=== PATIENT | female | born 1985 | race Caucasian/White ===

== ENCOUNTER 2016-08-06 21:16 | Emergency (ER) | payer OTHER ==
--- NOTE | 2016-08-06 21:44 | DIAGNOSTIC IMAGING REPORT ---
PROCEDURE: XR CHEST 1 VIEW INDICATION: CHEST PAIN TECHNIQUE: Single view chest. 2139 hours COMPARISON: None. FINDINGS: The cardiomediastinal contour and central vasculature are normal. The lungs are clear without focal consolidation, pleural effusion or pneumothorax. The osseous structures are intact. IMPRESSION: 1. No evidence of acute cardiopulmonary disease.
--- NOTE | 2016-08-06 23:19 | DIAGNOSTIC IMAGING REPORT ---
PROCEDURE: CTA THORAX WITH CONTRAST INDICATION: CP, DYSPNEA, H/O DVT TECHNIQUE: 80 ml of Isovue 370 was injected intravenously and axial images were obtained of the chest with 3D sagittal and coronal MIP reconstructions. COMPARISON: None. FINDINGS: Normal opacification of the pulmonary arterial tree without filling defect. The central pulmonary arteries are normal caliber. Thoracic aorta is normal caliber. The great vessels demonstrate a normal variant, retroesophageal right subclavian artery. Normal carotid arteries. Heart size is normal. No pericardial effusion. No adenopathy or mediastinal masses. The esophagus is normal in caliber without hiatal hernia. The thyroid gland is normal. The lungs are clear. The airway is patent and branches normally. No pleural effusions or pneumothorax. Osseous structures are intact. The images obtained of the upper abdomen are normal. IMPRESSION: 1. No pulmonary embolus. 2. No pulmonary parenchymal disease. 3. Findings called to the emergency room.
--- NOTE | 2016-08-06 23:24 | ED ORDER SUMMARY ---
..... Patient: CHRISTIANO GAYTAN OrderSheet [facility] VisitID: [id number] [place] [address] 31y, F Registration Date/Time: 08/06/2016 ORDER SHEET Weight: 63.9 kg (stated) Allergies: Amoxicillin, Keflex, Propofol GENERAL ORDERS: Chest 1V Urgent (21:26 08/06/2016 Mary ARMENTA) (Ack 21:28 [employer] ER [employer]igs) (21:39 NHouse ER Tech1) Certified Respiratory Therapist (Continuous) (21:27 08/06/2016 Mary ARMENTA) (21:34 JQuivey R.N.) CBC w Diff Urgent (21:27 08/06/2016 Mary ARMENTA) (Ack 21:28 [employer] ER [employer]) (21:32 JQuivey R.N.) CMP Urgent (21:27 08/06/2016 Mary ARMENTA) (Ack 21:28 [employer] ER [employer]) (21:32 JQuivey R.N.) PT with INR Urgent (21:27 08/06/2016 Mary ARMENTA) (Ack 21:28 [employer] ER [employer]) (21:32 JQuivey R.N.) EKG - ER Stat (21:27 08/06/2016 Mary ARMENTA) (21:32 JQuivey R.N.) (21:33 NHouse ER Tech1) Pulse oximeter (21:27 08/06/2016 Mary ARMENTA) (21:32 JQuivey R.N.) CTA Thorax w Cont (No) (normal) Urgent (22:14 08/06/2016 Mary ARMENTA) (Ack 22:15 [employer]Henry ER [employer]igs) (22:49 RFay) MEDICATION ORDERS: IV FLUIDS: Toradol IV 30 mg (NOW) (22:15 08/06/2016 Mary ARMENTA) (Ack 22:18 JQuivey R.N.) (22:23 JQuivey R.N.) Zofran IV 8 mg (NOW) (22:15 08/06/2016 Mary ARMENTA) (Ack 22:18 JQuivey R.N.) (22:23 JQuivey R.N.) ORDER SHEET NOTES: [Electronically signed by Emma Juarez MD (23:35 08/06/2016)] [Electronically signed by Alfred Aguilera R.N. (23:39 08/06/2016)] [Electronically locked/signed by Alfred Aguilera R.N. (23:39 08/06/2016)]
--- NOTE | 2016-08-06 23:24 | ED ORDER SUMMARY ---
..... Patient: CHRISTIANO GAYTAN OrderSheet [facility] VisitID: [id number] [place] [address] 31y, F Registration Date/Time: 08/06/2016 ORDER SHEET Weight: 63.9 kg (stated) Allergies: Amoxicillin, Keflex, Propofol GENERAL ORDERS: Chest 1V Urgent (21:26 08/06/2016 Mary ARMENTA) (Ack 21:28 [employer] ER Supervisor [employer] Production) (21:39 NHouse ER Tech1) Fixture Designer (Continuous) (21:27 08/06/2016 Mary ARMENTA) (21:34 JQuivey R.N.) CBC w Diff Urgent (21:27 08/06/2016 Mary ARMENTA) (Ack 21:28 [employer] ER Supervisor [employer]) (21:32 JQuivey R.N.) CMP Urgent (21:27 08/06/2016 Mary ARMENTA) (Ack 21:28 [employer] ER Supervisor [employer]) (21:32 JQuivey R.N.) PT with INR Urgent (21:27 08/06/2016 Mary ARMENTA) (Ack 21:28 [employer] ER Supervisor [employer]) (21:32 JQuivey R.N.) EKG - ER Stat (21:27 08/06/2016 Mary ARMENTA) (21:32 JQuivey R.N.) (21:33 NHouse ER Tech1) Pulse oximeter (21:27 08/06/2016 Mary ARMENTA) (21:32 JQuivey R.N.) CTA Thorax w Cont (No) (normal) Urgent (22:14 08/06/2016 Mary ARMENTA) (Ack 22:15 [employer] ER Supervisor [employer]) (22:49 RFay) MEDICATION ORDERS: IV FLUIDS: Toradol IV 30 mg (NOW) (22:15 08/06/2016 Mary ARMENTA) (Ack 22:18 JQuivey R.N.) (22:23 JQuivey R.N.) Zofran IV 8 mg (NOW) (22:15 08/06/2016 Mary ARMENTA) (Ack 22:18 JQuivey R.N.) (22:23 JQuivey R.N.) ORDER SHEET NOTES: [Electronically signed by Emma Juarez MD (23:35 08/06/2016)] [Electronically signed by Alfred Aguilera R.N. (23:39 08/06/2016)] [Electronically locked/signed by Alfred Aguilera R.N. (23:39 08/06/2016)]
--- NOTE | 2016-08-06 23:24 | ED NURSING NOTES ---
Clinical Report - Nurses [facility] [address] [place] [address] 08/06/2016 21:17 Patient: CHRISTIANO GAYTAN TRIAGE Triage time 21:23. Acuity: LEVEL 3. Chief Complaint: SHORTNESS OF BREATH and DIFFICULTY BREATHING and CHEST PAIN and BACK PAIN. 21:31. Alert. --21:32 Alfred Aguilera R.N. 21:23 08/06/16. BP: 109/67. HR: 93. RR: 17. O2 saturation: 99% on room air. Temp: 97.5 F (oral). Pain level now: 11/11. --21:32 Alfred Aguilera R.N. Weight: 63.9 kg stated. Height/Length: 63 inches Per Patient. BMI: 25. --21:31 Alfred Aguilera R.N. Medications Mesalamine ER Oral 1.2 gm , 4 x daily. --21:25 Alfred Aguilera R.N. Remicade Intravenous, 1 weekly . --21:27 Alfred Aguilera R.N. Medication/allergy information source: the patient. --21:32 Alfred Aguilera R.N. Allergies Amoxicillin. --21:27 Alfred Aguilera R.N. Keflex. --21:27 Alfred Aguilera R.N. Propofol. --21:27 Alfred Aguilera R.N. History Arrived by private vehicle. Historian: patient. Accompanied by family. Primary physician (None). This started today. ( Patient was sent here from the [facility] - pt has a Hx of DVT and they were worried about a PE). She has had a cough. ( vomited once today). Treatment LIBRARY MEDIA ASSISTANT: None. PAST MEDICAL HX: Immunizations: up-to-date. Last normal menstrual period- Started Sunday. SOCIAL HX: Never smoker. No alcohol use or drug use. No infectious disease exposure. ABUSE ASSESSMENT: No report of abuse. FALL RISK ASSESSMENT: Fall risk assessment completed. No fall risk identified. NUTRITIONAL RISK ASSESSMENT: The nutritional risk assessment revealed no deficiencies. FUNCTIONAL ASSESSMENT: Functional assessment: no impairments noted. LEARNING NEEDS ASSESSMENT: The learning needs assessment revealed no barriers. SKIN INTEGRITY ASSESSMENT: Skin integrity risk assessment completed. No skin integrity risk identified. --21:32 Alfred Aguilera R.N. PROBLEMS: Colitis. --21:28 Alfred Aguilera R.N. ADDITIONAL SURGERIES: no known surgeries. Interventions ID band on patient. To treatment room. --21:32 Alfred Aguilera R.N. PHYSICAL ASSESSMENT 21:30. Ambulatory to room. Patient gowned. GENERAL / NEURO / PSYCH: Alert. Oriented X 4. HEENT: Mucous membranes are pink. RESPIRATORY: No respiratory distress. Respirations not labored. The patient can speak in full sentences. SKIN: Skin is warm and dry. Normal skin turgor. --21:30 Alfred Aguilera R.N. NURSING PROGRESS NOTES 21:29. Head of bed elevated. Two patient identifiers checked. Call light placed in reach. Bed placed in lowest position. Brakes of bed on. --21:29 Alfred Aguilera R.N. 21:29. EKG time: (2131). EKG was performed by a tech and shown to the ED physician. --21:29 Alfred Aguilera R.N. 21:27 08/06/2016 Site #1 started via IV in the right antecubital space with an 20g angiocath; one attempt. Blood drawn: rainbow set. Labeled in the presence of the patient and sent to the lab. Saline lock flushed with 10 mL saline (by Panchito CAVAZOS). --21:30 Alfred Aguilera R.N. 21:34. monitoring manager, pulse oximeter and NIBP monitor placed on patient; monitor alarms on. --21:34 Alfred Aguilera R.N. 21:41. Portable chest x-ray performed. --22:03 Alfred Aguilera R.N. 22:18 08/06/2016 Zofran (Ondansetron HCl) IVP 8 mg given over 2 minute(s) via site #1. Allergies verified and confirmed 5 rights. IV patency established. IV site checked: no pain, redness, or swelling. IV flushed thoroughly pre- and post-medication administration. --22:23 Alfred Aguilera R.N. 22:21 08/06/2016 Toradol IVP 30 mg given over 2 minute(s) via site #1. Allergies verified and confirmed 5 rights. IV patency established. IV site checked: no pain, redness, or swelling. IV flushed thoroughly pre- and post-medication administration. --22:23 Alfred Aguilera R.N. 22:36. Patient transported to CT by stretcher with tech. --22:46 Alfred Aguilera R.N. 22:50. Patient returned from CT by stretcher with tech. --22:51 Alfred Aguilera R.N. 23:35. The patient is calm and resting quietly. RESPIRATORY: No respiratory distress. SKIN: Skin is warm and dry. Skin color within normal limits. --23:38 Alfred Aguilera R.N. DISPOSITION / DISCHARGE Departure time: 23:37. Condition at departure: critical. No learning barriers present. Discharge instructions provided and reviewed with the patient. Reviewed medication(s) side effects, precautions, dosing and course information. Prescription(s) given to the patient. Patient verbalized understanding. Written instructions provided in [place]er. The patient was discharged home and accompanied by family. She left the Emergency Department ambulatory and via private vehicle. Patient driving. FALL RISK ASSESSMENT: Fall risk assessment completed. No fall risk identified. --23:38 Alfred Aguilera R.N. 23:31 08/06/16. BP: 98/61. HR: 83. RR: 16. O2 saturation: 99%. Pain level now: 07/14. --23:38 Alfred Aguilera R.N. 23:33 08/06/2016 Site #1 removed upon discharge. Catheter intact. Bandage applied. --23:38 Alfred Aguilera R.N. Locked/Released at 08/06/2016 23:39 by Alfred Aguilera R.N.
--- NOTE | 2016-08-06 23:24 | ED NURSING NOTES ---
Clinical Report - Nurses [facility] [address] [place] [address] 08/06/2016 21:17 Patient: CHRISTIANO GAYTAN TRIAGE Triage time 21:23. Acuity: LEVEL 3. Chief Complaint: SHORTNESS OF BREATH and DIFFICULTY BREATHING and CHEST PAIN and BACK PAIN. 21:31. Alert. --21:32 Alfred Aguilera R.N. 21:23 08/06/16. BP: 109/67. HR: 93. RR: 17. O2 saturation: 99% on room air. Temp: 97.5 F (oral). Pain level now: 11/11. --21:32 Alfred Aguilera R.N. Weight: 63.9 kg stated. Height/Length: 63 inches Per Patient. BMI: 25. --21:31 Alfred Aguilera R.N. Medications Mesalamine ER Oral 1.2 gm , 4 x daily. --21:25 Alfred Aguilera R.N. Remicade Intravenous, 1 weekly . --21:27 Alfred Aguilera R.N. Medication/allergy information source: the patient. --21:32 Alfred Aguilera R.N. Allergies Amoxicillin. --21:27 Alfred Aguilera R.N. Keflex. --21:27 Alfred Aguilera R.N. Propofol. --21:27 Alfred Aguilera R.N. History Arrived by private vehicle. Historian: patient. Accompanied by family. Primary physician (None). This started today. ( Patient was sent here from the [facility] - pt has a Hx of DVT and they were worried about a PE). She has had a cough. ( vomited once today). Treatment WAITSTAFF: None. PAST MEDICAL HX: Immunizations: up-to-date. Last normal menstrual period- Started Sunday. SOCIAL HX: Never smoker. No alcohol use or drug use. No infectious disease exposure. ABUSE ASSESSMENT: No report of abuse. FALL RISK ASSESSMENT: Fall risk assessment completed. No fall risk identified. NUTRITIONAL RISK ASSESSMENT: The nutritional risk assessment revealed no deficiencies. FUNCTIONAL ASSESSMENT: Functional assessment: no impairments noted. LEARNING NEEDS ASSESSMENT: The learning needs assessment revealed no barriers. SKIN INTEGRITY ASSESSMENT: Skin integrity risk assessment completed. No skin integrity risk identified. --21:32 Alfred Aguilera R.N. PROBLEMS: Colitis. --21:28 Alfred Aguilera R.N. ADDITIONAL SURGERIES: no known surgeries. Interventions ID band on patient. To treatment room. --21:32 Alfred Aguilera R.N. PHYSICAL ASSESSMENT 21:30. Ambulatory to room. Patient gowned. GENERAL / NEURO / PSYCH: Alert. Oriented X 4. HEENT: Mucous membranes are pink. RESPIRATORY: No respiratory distress. Respirations not labored. The patient can speak in full sentences. SKIN: Skin is warm and dry. Normal skin turgor. --21:30 Alfred Aguilera R.N. NURSING PROGRESS NOTES 21:29. Head of bed elevated. Two patient identifiers checked. Call light placed in reach. Bed placed in lowest position. Brakes of bed on. --21:29 Alfred Aguilera R.N. 21:29. EKG time: (2131). EKG was performed by a tech and shown to the ED physician. --21:29 Alfred Aguilera R.N. 21:27 08/06/2016 Site #1 started via IV in the right antecubital space with an 20g angiocath; one attempt. Blood drawn: rainbow set. Labeled in the presence of the patient and sent to the lab. Saline lock flushed with 10 mL saline (by Panchito CAVAZOS). --21:30 Alfred Aguilera R.N. 21:34. child monitor, pulse oximeter and NIBP monitor placed on patient; monitor alarms on. --21:34 Alfred Aguilera R.N. 21:41. Portable chest x-ray performed. --22:03 Alfred Aguilera R.N. 22:18 08/06/2016 Zofran (Ondansetron HCl) IVP 8 mg given over 2 minute(s) via site #1. Allergies verified and confirmed 5 rights. IV patency established. IV site checked: no pain, redness, or swelling. IV flushed thoroughly pre- and post-medication administration. --22:23 Alfred Aguilera R.N. 22:21 08/06/2016 Toradol IVP 30 mg given over 2 minute(s) via site #1. Allergies verified and confirmed 5 rights. IV patency established. IV site checked: no pain, redness, or swelling. IV flushed thoroughly pre- and post-medication administration. --22:23 Alfred Aguilera R.N. 22:36. Patient transported to CT by stretcher with tech. --22:46 Alfred Aguilera R.N. 22:50. Patient returned from CT by stretcher with tech. --22:51 Alfred Aguilera R.N. 23:35. The patient is calm and resting quietly. RESPIRATORY: No respiratory distress. SKIN: Skin is warm and dry. Skin color within normal limits. --23:38 Alfred Aguilera R.N. DISPOSITION / DISCHARGE Departure time: 23:37. Condition at departure: critical. No learning barriers present. Discharge instructions provided and reviewed with the patient. Reviewed medication(s) side effects, precautions, dosing and course information. Prescription(s) given to the patient. Patient verbalized understanding. Written instructions provided in [place]er. The patient was discharged home and accompanied by family. She left the Emergency Department ambulatory and via private vehicle. Patient driving. FALL RISK ASSESSMENT: Fall risk assessment completed. No fall risk identified. --23:38 Alfred Aguilera R.N. 23:31 08/06/16. BP: 98/61. HR: 83. RR: 16. O2 saturation: 99%. Pain level now: 07/14. --23:38 Alfred Aguilera R.N. 23:33 08/06/2016 Site #1 removed upon discharge. Catheter intact. Bandage applied. --23:38 Alfred Aguilera R.N. Locked/Released at 08/06/2016 23:39 by Alfred Aguilera R.N.
--- NOTE | 2016-08-06 23:24 | ED CLINICAL REPORT ---
Clinical Report - Physicians/Mid Levels [facility] [address] [place] [address] 08/06/2016 21:17 Patient: CHRISTIANO GAYTAN Time Seen: 2122. Arrived- By private vehicle. Historian- patient. HISTORY OF PRESENT ILLNESS Chief Complaint: CHEST PAIN. At its maximum, severity described as moderate. When seen in the E.D., severity described as mild. Modifying factors. Not worsened by anything. Not relieved by anything. This started several days ago and is still present. It has been intermittent. The patient cannot recall the circumstances at the onset. It is described as sharp and "pain" and it is described as located in the right chest, central chest and left chest area. The patient has had mild difficulty breathing and nausea. She has had vomiting (this morning). The vomiting has occurred twice. No diaphoresis. Similar symptoms previously: None. Recent medical care: The patient was seen recently at another facility in a clinic. ( Pt had a d-dimer done, and this was apparently elevated, so pt was told to come here.). REVIEW OF SYSTEMS No fever, chills, cough, pedal edema or calf pain. No fainting episodes, headache, sore throat, blurred vision or abdominal pain. No black stools, difficulty with urination, skin rash, enlarged lymph nodes or joint pain. No bloody stools. All systems otherwise negative, except as recorded above. PAST HISTORY Problems: Colitis. Additional Surgeries: no known surgeries. Medications: Remicade Intravenous, 1 weekly . Mesalamine ER Oral 1.2 gm , 4 x daily. Allergies: Amoxicillin. Keflex. Propofol. SOCIAL HISTORY Never smoker. No alcohol use or drug use. ADDITIONAL NOTES The nursing notes have been reviewed. PHYSICAL EXAM Vital Signs: 08/06/2016 21:23 BP: 109/67. HR: 93. RR: 17. O2 saturation: 99%. Temp: 97.5 F. Pain level now: 6/10. Have been reviewed. Appearance: Alert. Oriented X3. No acute distress. Eyes: Pupils equal, round and reactive to light. Eyes normal inspection. ENT: Nose normal. Neck: Normal inspection. Neck supple. CVS: Normal heart rate and rhythm. Heart sounds normal. Pulses normal. Respiratory: No respiratory distress. Breath sounds normal. Abdomen: Soft and nontender. Back: Normal external inspection. No CVA tenderness. Skin: Skin warm and dry. Normal skin color. No rash. Normal skin turgor. Extremities: Extremities exhibit normal ROM. No lower extremity edema. Neuro: Oriented X 3. No motor deficit. No sensory deficit. LABS, X-RAYS, AND EKG EKG: EKG time: (2131). No acute process. No acute ischemia. Normal EKG. Normal sinus rhythm. Rate: 91. Normal P waves. Normal SONG. Normal QRS complex. Normal axis. Normal ST and T waves, QT and QTc. Prior EKG unavailable. The study has been interpreted contemporaneously by me. The study has been independently viewed by me. The EKG appears to be a good tracing. I agree with and confirm the computer reading of the EKG. Rhythm Strip #1: Time: (2135). Rate= 89. Normal sinus rhythm. Regular rhythm. Narrow QRS complexes. No ectopy. Conduction normal. Normal ST segments and T waves. The study was interpreted by me. Chest X-ray: No acute disease. Normal lung markings present. Normal heart size. Mediastinum normal. Great vessels normal. Soft tissues normal. No infiltrate. No fracture. No bony lesion present. Views: AP (portable). Technique: good. The X-rays were independently viewed by me, interpreted by the radiologist and contemporaneously by me and discussed with the radiologist. Prior films were not available for comparison. Chest CT: Lungs normal. Great vessels normal. Mediastinum normal. No fractures noted. Chest CT performed with contrast. The study was independently viewed by me, interpreted by the radiologist and contemporaneously by me and discussed with the radiologist. Prior studies were not available for comparison. Laboratory Tests: CBC w Diff: (MARRY: 08/06/2016 21:30) ( MsgRcvd 08/06/2016 21:44) Final results Test Result Flag Units (Reference) WHITE BLOOD COUNT 9.1 K/uL (4.5-11.5) RED BLOOD COUNT 4.62 M/uL (4.00-5.20) HEMOGLOBIN 13.3 gm/dL (12.0-16.0) HEMATOCRIT 39.7 % (36.0-46.0) MEAN CELL VOLUME 86 fL (80-100) MEAN CORPUSCULAR HGB 29 pg (26-34) MEAN CORPUSCULAR HGB CONC 33 g/dL (31-37) RED CELL DISTRIBUTION WIDTH 13.4 % (11.6-14.8) PLATELET COUNT 266 K/uL (150-400) NEUTROPHIL % 66.6 % (50-75) LYMPH % 21.5 L % (25-40) MONO % 7.4 % (3-14) EOSINOPHIL % 4.1 H % (0-4) BASOPHIL % 0.4 % (0-2) PT with INR: (MARRY: 08/06/2016 21:30) ( [facility] 08/06/2016 21:50) Final results Test Result Flag Units (Reference) INR 0.9 (0.8-1.2) Low Intensity Therapy: INR 1.5-2.0 PT range 18.5-23.1Mod.Intensity Therapy: INR 2.0-3.0 PT range 23.1-31.5High Intensity Therapy: INR 2.5-3.5 PT range 27.4-35.5High Intensity Therapy 2: INR 3.0-4.0 PT range 31.5-39.3 CMP: (MARRY: 08/06/2016 21:30) ( [facility] 08/06[facility] 21[facility]56) Final results Test Result Flag Units (Reference) GLUCOSE 77 mg/dL (70-110) BUN 10 mg/dL (7-18) CREATININE 0.7 mg/dL (0.6-1.3) Estimated GFR >60 mL/min Estimated GFR- >60 mL/min Note: Persistent reduction over 3 months in eGFR<60 mL/min/1.73 m2 defines CKD. Patients with eGFR values>=60 mL/min/1.73 m2 may also have CKD if evidence ofpersistent proteinuria. Additional information may be foundat www.kidney.org. SODIUM 141 mmol/L (136-145) POTASSIUM 3.2 L mmol/L (3.5-5.1) CHLORIDE 104 mmol/L (98-107) CARBON DIOXIDE 29 mmol/L (21-32) CALCIUM 8.5 mg/dL (8.5-10.1) TOTAL PROTEIN 7.9 g/dL (6.4-8.2) ALBUMIN 3.9 g/dL (3.3-5.0) BILIRUBIN, TOTAL 0.5 mg/dL (0.0-1.0) ALKALINE PHOSPHATASE 75 U/L (46-116) AST (SGOT) 16 U/L (15-37) ALT (SGPT) 26 U/L (12-78) . Pulse Oximetry: 08/06/2016 21:23 O2 saturation: 99%. (FIO2 - room air). Interpretation: normal. PROGRESS AND PROCEDURES Course of Care: Given pt's risk factors, she was worked up for a potential PE. Pt was treated symptomatically with Zofran and Toradol, and work-up was negative. No emergent condition was identified. Patient counseled in person regarding the patient's stable condition, test results, diagnosis and need for follow-up. Concerns were addressed. Old medical records reviewed. Disposition: Discharged. Condition: stable and improved. CLINICAL IMPRESSION Chest pain .12 lead EKG performed. Acute viral syndrome INSTRUCTIONS (Your labs look good, and your CT shows no sign of a blood clot or any other emergent cause of your symptoms. You have no symptoms to indicate any clot in your legs.). Warnings: GENERAL WARNINGS: Return or contact your physician immediately if your condition worsens or changes unexpectedly, if not improving as expected, or if other problems arise. Your Current Medications: CONTINUE TAKING THE FOLLOWING MEDICATIONS: Mesalamine ER Oral : 1.2 gm 4 x daily. Remicade Intravenous : 1 weekly. Prescription Medications: Zofran (orally disintegrating tablets) 4 mg: take 1-2 orally every 6 hours as needed for nausea. Dispense fifteen (15). No refill. Substitution is permissible. Follow-up: Follow up with your doctor in five days if not better. Understanding of the discharge instructions verbalized by patient. (Electronically signed by Emma Juarez MD 08/06/2016 23:35)
--- NOTE | 2016-08-06 23:40 | ED MAR SUMMARY ---
..... Medication Administration Record [facility] [address] [place] [address] Patient: CHRISTIANO GAYATN Visit ID: [id number] 31y, F Weight: 63.9 kg Height/Length: 63 in BMI: 25 ALLERGIES: Propofol, Keflex, Amoxicillin Given 22:18 08/06/2016 Alfred Aguilera, R.N. Medication Administered: ZOFRAN [IVP] (ONDANSETRON HCL), Dose: 8 mg IVP over 2 minute(s), Site: #1 right AC. Medication Ordered: Zofran IV 8 mg (NOW). Given 22:21 08/06/2016 Alfred Aguilera, R.N. Medication Administered: TORADOL [IVP], Dose: 30 mg IVP over 2 minute(s), Site: #1 right AC. Medication Ordered: Toradol IV 30 mg (NOW).
--- NOTE | 2016-08-06 23:40 | ED MAR SUMMARY ---
..... Medication Administration Record [facility] [address] [place] [address] Patient: CHRISTIANO GAYTAN Visit ID: [id number] 31y, F Weight: 63.9 kg Height/Length: 63 in BMI: 25 ALLERGIES: Propofol, Keflex, Amoxicillin Given 22:18 08/06/2016 Alfred Aguilera, R.N. Medication Administered: ZOFRAN [IVP] (ONDANSETRON HCL), Dose: 8 mg IVP over 2 minute(s), Site: #1 right AC. Medication Ordered: Zofran IV 8 mg (NOW). Given 22:21 08/06/2016 Alfred Aguilera, R.N. Medication Administered: TORADOL [IVP], Dose: 30 mg IVP over 2 minute(s), Site: #1 right AC. Medication Ordered: Toradol IV 30 mg (NOW).
--- NOTE | 2016-08-06 23:40 | ED MED RECONCILIATION SUMMARY ---
Patient: CHRISTIANO GAYTAN Medication Reconciliation Report [facility] VisitID: [id number] [address] [place] [address] 31y, F Registration Date/Time: 08/06/2016 Weight: 63.9 kg Height/Length: 63 in. BMI: 25.0 ALLERGIES: Amoxicillin, Keflex, Propofol The patient's Home Medications are listed below: CONTINUE TAKING THE FOLLOWING MEDICATIONS: Mesalamine ER Oral 1.2 gm , 4 x daily Remicade Intravenous, 1 weekly The source(s) of the original Home Medication information: patient The following Medications were given to the patient in the Emergency Department: Zofran [IVP] IVP 8 mg, administered: 08/06/2016 10:18:00 PM Toradol [IVP] IVP 30 mg, administered: 08/06/2016 10:21:00 PM The following Medications were prescribed to the patient: Zofran (orally disintegrating tablets) 4 mg: take 1-2 orally every 6 hours as needed for nausea. Dispense fifteen (15). No refill. Substitution is permissible. -- Emma Juarez MD
--- NOTE | 2016-08-06 23:40 | ED MED RECONCILIATION SUMMARY ---
Patient: CHRISTIANO GAYTAN Medication Reconciliation Report [facility] VisitID: [id number] [address] [place] [address] 31y, F Registration Date/Time: 08/06/2016 Weight: 63.9 kg Height/Length: 63 in. BMI: 25.0 ALLERGIES: Amoxicillin, Keflex, Propofol The patient's Home Medications are listed below: CONTINUE TAKING THE FOLLOWING MEDICATIONS: Mesalamine ER Oral 1.2 gm , 4 x daily Remicade Intravenous, 1 weekly The source(s) of the original Home Medication information: patient The following Medications were given to the patient in the Emergency Department: Zofran [IVP] IVP 8 mg, administered: 08/06/2016 10:18:00 PM Toradol [IVP] IVP 30 mg, administered: 08/06/2016 10:21:00 PM The following Medications were prescribed to the patient: Zofran (orally disintegrating tablets) 4 mg: take 1-2 orally every 6 hours as needed for nausea. Dispense fifteen (15). No refill. Substitution is permissible. -- Emma Juarez MD
--- NOTE | 2016-08-06 23:40 | ED DISCHARGE INSTRUCTIONS ---
Patient: CHRISTIANO GAYTAN General Instructions [facility] VisitID: [id number] [place] [address] 31y, F Registration Date/Time: 08/06/2016 Chest pain .12 lead EKG performed. Acute viral syndrome INSTRUCTIONS (Your labs look good, and your CT shows no sign of a blood clot or any other emergent cause of your symptoms. You have no symptoms to indicate any clot in your legs.). Warnings: GENERAL WARNINGS: Return or contact your physician immediately if your condition worsens or changes unexpectedly, if not improving as expected, or if other problems arise. Your Current Medications: CONTINUE TAKING THE FOLLOWING MEDICATIONS: Mesalamine ER Oral : 1.2 gm 4 x daily. Remicade Intravenous : 1 weekly. Prescription Medications: Zofran (orally disintegrating tablets) 4 mg: take 1-2 orally every 6 hours as needed for nausea. Dispense fifteen (15). No refill. Substitution is permissible. Follow-up: Follow up with your doctor in five days if not better. Understanding of the discharge instructions verbalized by patient. ADDITIONAL INFORMATION Chest Wall Pain: Costochondritis The chest pain that you have had today is caused by Costochondritis. This condition is due to an inflammation of the cartilage joining the ribs to the breastbone. It is not caused by heart or lung problems. Although the exact cause for costochondritis is not known, it often occurs during times of emotional stress. It can be painful, but it is not dangerous. It usually disappears within one to two weeks, but may recur. Rarely, a more serious condition may cause symptoms similar to costochondritis; therefore, watch for the warning signs listed below. Home Care: If you feel that emotional stress is a cause of your condition, try to identify sources of that stress. It may not be obvious! Learn ways to deal with the stress in your life such as regular exercise, muscle relaxation, meditation, or simply taking time out for yourself. For more information about this, consult your doctor or go to a local bookstore and review books and tapes available on the subject of stress reduction. You may use acetaminophen (Tylenol) or ibuprofen (Motrin, Advil) to control pain, unless another pain medicine was prescribed. [ NOTE: If you have liver disease or ever had a stomach ulcer, talk with your doctor before using these medicines.] The use of heat (hot wet compress or heating pad) with or without local analgesic creams (Deep Heat Rub, Fady Salgado) will be helpful to reduce pain. Follow Up with your doctor as directed or sooner if you do not start to improve within the next two days. Get Prompt Medical Attention if any of the following occur: A change in the type of pain: if it feels different, becomes more severe, lasts longer, or spreads into your shoulder, arm, neck, jaw or back Shortness of breath or increased pain with breathing Weakness, dizziness, or fainting Cough with dark colored sputum (phlegm) or blood Abdominal pain Dark red or black stools Fever of 100.4F (38C) or higher, or as directed by your healthcare provider Viral Syndrome (Adult) A viral illness may cause a number of symptoms. The symptoms depend on the part of the body that the virus affects. If it settles in the nose, throat, and lungs, it may cause cough, sore throat, congestion, and sometimes headache. If it settles in the stomach and intestinal tract, it may cause vomiting and diarrhea. Sometimes it causes vague symptoms like "aching all over," feeling tired, loss of appetite, or fever. A viral illness usually lasts1 to 2 weeks, but sometimes it lasts longer. In some cases, a more serious infection can look like a viral syndrome in the first few days of the illness. You may need anotherexam and additional teststo know the difference.Watch for the warning signs listed below. Home care Follow these guidelines for taking care of yourself at home: If symptoms are severe, rest at home for the first 2 to 3 days. Stay away from cigarette smoke - both your smoke and the smoke from others. You may useacetaminophen or ibuprofen for fever, muscle aching, and headache, unless another medicine was prescribed for this.If you have chronic liver or kidney disease or ever had a stomach ulcer or GI bleeding, talk with your doctor before using these medicinesNo one who is younger than 18 and ill with a fever should take aspirin. It may cause severe liver damage. Your appetite may be poor, so a light diet is fine. Avoid dehydration by drinking 8 to 12 8-ounce glasses of fluids each day. This may include water; orange juice; lemonade; apple, grape, and cranberry juice; clear fruit drinks; electrolyte replacement and sports drinks; and decaffeinated teas and coffee. If you have been diagnosed with a kidney disease, ask your doctor how much and what types of fluids you should drink to prevent dehydration. If you have kidney disease, drinking too much fluid can cause it build up in the your body and be dangerous to your health. Yikr-wye-htnaopq remedies won't shorten the length of the illness but may be helpful forcough, sore throat; and nasal and sinus congestion. Don't use decongestants if you have high blood pressure. Follow-up care Follow up with your health care provider if you do not improve over the next week. When to seek medical care Get prompt medical attention if any of these occur: Cough with lots of colored sputum (mucus) or blood in your sputum Chest pain, shortness of breath, wheezing, or difficulty breathing Severe headache; face, neck, or ear pain Severe, constant pain in the lower right side of your belly (abdominal) Continued vomiting (cant keep liquids down) Frequent diarrhea (more than 5 times a day); blood (red or black color) or mucus in diarrhea Feeling weak, dizzy, or like you are going to faint Extreme thirst Fever of 100.4 F (38 C) oral or higher, not better with fever medication Convulsion You have been given the following additional information: Chest Wall Pain, Costochondritis Viral Syndrome (Adult) (Electronically signed by Emma Juarez MD 08/06/2016 23:35)
== END 2016-08-06 23:37 | disposition home or self-care (01) ==
LOC: ED SRH 21:16
DX: R07.9 Chest pain, unspecified (principal); B34.9 Viral infection, unspecified; Z79.899 Other long term (current) drug therapy; Z88.0 Allergy status to penicillin; Z88.8 Allergy status to other drugs, medicaments and biological substances
CPT/HCPCS: 90100; 94060; 95059